=== PATIENT | male | born 1970 | race Caucasian/White ===

== ENCOUNTER 2019-03-26 03:19 | Emergency (ER) | payer BC, OTHER ==
[~2019-03-26] VITALS: Ht 182.9 cm; Wt 93.0 kg
[2019-03-26] MEDS ORDERED: FLOMAX0.4 MG PO ×2 (03:38→06:28)
[2019-03-26 03:47] LABS: BASOPHILS 1.3 % (0.0-2.0); EOSINOPHILS 1.4 % (0.0-3.0); HEMOGLOBIN 13.1 gm/dL (14.0-18.0); LYMPHOCYTES 44.5 % (24.0-44.0); MCH 30.2 pg (26.0-34.0); MCHC 32.7 g/dL (28.0-37.0); MCV 92.5 fL (80.0-100.0); MONOCYTES 9.4 % (1.0-8.0); PLATELET COUNT 289 thou/uL (150-400); POLYS 43.4 % (36.0-66.0); RBC 4.32 mil/uL (4.50-6.00); RDW 13.6 % (10.5-14.5); WBC 11.6 thou/uL (4.0-11.0)
[2019-03-26 03:49] LABS: URINE BILIRUBIN NEGATIVE (Negative); URINE BLOOD 3+ (Negative); URINE CLARITY CLEAR; URINE COLOR YELLOW; URINE GLUCOSE-RANDOM* NEGATIVE (Negative); URINE KETONES NEGATIVE (Negative); URINE LEUKOCYTES-REFLEX NEGATIVE (Negative); URINE NITRITE-REFLEX NEGATIVE (Negative); URINE PROTEIN (DIPSTICK) TRACE (Negative); URINE SPECIFIC GRAVITY >= 1.030 (1.005-1.035); URINE UROBILINOGEN 0.2 E.U./dl (0.2-1.0)
[2019-03-26 03:53] LABS: CALCIUM 8.3 mg/dL (8.5-10.1); CREATININE 1.6 mg/dL (0.7-1.3); POTASSIUM 3.6 mmol/L (3.5-5.1)
[2019-03-26 03:59] LABS: TOTAL BILIRUBIN 0.4 mg/dL (<0.1-1.0); TOTAL PROTEIN 6.7 g/dL (6.4-8.2)
[2019-03-26 04:18] LABS: BACTERIA-REFLEX None Seen /HPF (None Seen); CASTS None Seen /LPF (None Seen); CRYSTALS None Seen /LPF (None Seen); MUCUS 0-3 Light strn/LPF (None Seen); SQUAMOUS 0-3 Few /LPF (0-3); URINE RBC 3-10 Few /HPF (0-2); URINE WBC-REFLEX None Seen /HPF (0-5)
[2019-03-26 06:21] VITALS: BP 117/70
[2019-03-26] MEDS ORDERED: SENNA-DOCUSATE1 EAC1 PO (06:28)
[2019-03-26] MEDS ORDERED: PERCOCET 7.5-31 EACH PO (06:28)
[2019-03-26] MEDS ORDERED: ZOFRAN ODT4 MG PO (06:28)
== END 2019-03-26 06:56 | disposition home or self-care (01) ==
LOC: ER 03:19
PROVIDERS: Emergency Medicine
DX: N20.1 Calculus of ureter (principal); R42 Dizziness and giddiness

== ENCOUNTER → 2020-06-02 | Outpatient (CLI) | payer BC, OTHER ==
[~2020-06-02] MED LIST: FLOMAX0.4 MG PO; PERCOCET 7.5-31 EACH PO; SENNA-DOCUSATE1 EAC1 PO; ZOFRAN ODT4 MG PO
== END ==
LOC: CAT 14:51
PROVIDERS: ATTEND Family Medicine
DX: K76.0 Fatty (change of) liver, not elsewhere classified (principal); N20.0 Calculus of kidney; K57.30 Diverticulosis of large intestine without perforation or abscess without bleeding